=== PATIENT | female | born 1970 | race Caucasian/White ===

== ENCOUNTER 2019-01-21 12:35 | Emergency (ER) | payer BC, OTHER ==
--- NOTE | 2019-01-21 12:58 | EDPHY ---
H & P Stated Complaint: R ankle injury Time Seen by Provider: 01/21/19 12:48 HPI/ROS: HPI: This is a 48-year-old female who presents Chief Complaint: Right ankle, right big toe injury Location: Right ankle, right big toe Quality: Injury Duration: 1-2 hours prior to arrival Signs and Symptoms: No bleeding, no radiation, no numbness, no weakness, no tingling, no incontinence,+ decreased range of motion, + swelling, + pain, no fever, no skin color change Timing: Acute Severity: 04/14 Context: Patient reports that she was running late [place] meeting [place] when she tripped walking down the stairs. She reports that she twisted her right ankle and injured her right big toe. She reports that she felt immediate, constant, moderate, radiating pain from her ankle down into her big toe. Patient has increased pain with weight-bearing. Denies radiation, weakness, paresthesias. Patient reports that her right big toe movement is limited secondary to pain. Denies LOC/head injury/neck pain/dizziness/nausea/vomiting/ amnesia. Modifying Factors: No [id number] pain medications or ice applied Comment: ROS: A comprehensive 10 system review of systems is otherwise negative aside from elements mentioned in the history of present illness. MEDICAL/SURGICAL/SOCIAL HISTORY: Medical history: History of urinary tract infections, hypertension, GERD Surgical history: Hysterectomy, appendectomy, right wrist surgery by Dr. Lynch Social history: Former smoker. Employed. CONSTITUTIONAL: Polite, pleasant, middle-aged white female, awake and alert, no obvious distress HEENT: Atraumatic and normocephalic, PERRL, EOMI. Nares patent; no rhinorrhea; no nasal mucosal edema. Tympanic membranes clear. Oropharynx clear, no exudate and moist pink mucosa. Airway patent. No lymphadenopathy. No meningismus. Cardiovascular: Normal S1/S2, regular rate, regular rhythm, without murmur rub or gallop. PULMONARY/CHEST: Symmetrical and nontender. Clear to auscultation bilaterally. Good air movement. No accessory muscle usage. ABDOMEN: Soft, nondistended, nontender, no rebound, no guarding, no peritoneal signs, no masses or organomegaly. No CVAT. EXTREMITIES: 2/2 pulses, strength 5/5, right great toe shows mild swelling and tenderness to palpation at the DIP joint. Flexion is limited on the right great toe secondary to pain. All other toes have good flexion and extension at the DI P and MTP joints. Right Ankle: Mild lateral malleolus swelling, no ecchymosis, Plantar flexion to 50, dorsiflexion to 20. Foot inversion to 35 degree. Mild tenderness/swelling Anterior talofibular ligament. No tenderness/ swelling Calcaneofibular ligament, no tenderness/swelling posterior talofibular ligament, no tenderness/swelling posterior inferior tibiofibular ligament. Achilles tendon intact. no deformities, no clubbing, no cyanosis or edema. NEUROLOGICAL: no focal neuro deficits. GCS 15. SKIN: Warm and dry, no erythema. no rash. Good capillary refill. Source: Patient Exam Limitations: No limitations - Personal History Current Tetanus/Diphtheria Vaccine: Unsure Current Tetanus Diphtheria and Acellular Pertussis (TDAP): Unsure Tetanus Vaccine Date: 2009 - Medical/Surgical History Hx Asthma: No Hx Chronic Respiratory Disease: No Hx Diabetes: No Hx Cardiac Disease: No Hx Renal Disease: No Hx Cirrhosis: No Hx Alcoholism: No Hx HIV/AIDS: No Hx Splenectomy or Spleen Trauma: No Other PMH: utis. hyst, appy. r wrist surgery, HTN, GERD - Social History Smoking Status: Former smoker Constitutional: Initial Vital Signs Temperature (C) 36.9 C 01/21/19 12:41 Heart Rate 74 01/21/19 12:41 Respiratory Rate 16 01/21/19 12:41 Blood Pressure 132/93 H 01/21/19 12:41 O2 Sat (%) 94 01/21/19 12:41 O2 Delivery Mode Room Air Allergies/Adverse Reactions: Penicillins Allergy (Unknown, Verified 01/21/19 12:40) Hives Home Medications: Medication Instructions Recorded Synthroid 01/26/10 HCTZ (*) 01/21/19 Metoprolol Tartrate 01/21/19 Omeprazole 01/21/19 Paxil 01/21/19 Rosuvastatin Calcium 01/21/19 oxyCODONE/APAP 5/325 [Percocet 1 - 2 tab PO Q4H PRN #10 tab 01/21/19 5/325 (*)] Medical Decision Making - Diagnostics Imaging Results: Imaging Impressions Ankle X-Ray 01/21/19 12:44 Impression: Lateral ankle sprain. No acute fracture. Foot X-Ray 01/21/19 12:44 Impression: Acute nondisplaced incomplete fracture base of proximal phalanx great toe. Findings discussed with Emergency Department physician service assistant, Hillary Valverde, on 01/21/2019, 14:09. Procedures: Procedure: Splint placement. A right walking boot was applied. After application of the splint I returned and re-examined the patient. The splint was adequately immobilizing the joint and distal to the splint the patient's circulation and sensation was intact. ED Course/Re-evaluation: Vital signs reviewed and stable upon arrival. Right ankle x-ray, right foot x-ray ordered Given Percocet and Ibuprofen 600 mg Spoke with radiologist, Dr. Rincon, who reports the distal tibia chip fracture is old but new closed nondisplaced great toe fracture. Placed in walking boot, crutches, Dr. Lynch follow-up No signs of neurovascular compromise/tenting of skin/compartment syndrome/ extremities and joints examined above and below area of concern and are neurovascularly intact. This patient was seen under the supervision of my primary supervising physician. I evaluated care for this patient independently. Differential Diagnosis: Ankle injury differential diagnosis includes but is not limited to tibia fracture, fibula fracture, metatarsal fracture, LisFranc fracture, achilles tendon rupture, sprain. - Data Points Medications Given: Discontinued Medications Ibuprofen (Motrin) 600 mg PO EDNOW ONE Stop: 01/21/19 13:17 Last Admin: 01/21/19 13:19 Dose: 600 mg Oxycodone/Acetaminophen (Percocet 5/325) 1 tab PO EDNOW ONE Stop: 01/21/19 14:07 Last Admin: 01/21/19 14:13 Dose: 1 tab Departure - Departure Disposition: Home, Routine, Self-Care Clinical Impression: Moderate right ankle sprain Qualifiers: Encounter type: initial encounter Qualified Code(s): S93.401A - Sprain of unspecified ligament of right ankle, initial encounter Fracture of great toe, right, closed Qualifiers: Encounter type: initial encounter Phalanx: distal Fracture alignment: nondisplaced Qualified Code(s): S92.424A - Nondisplaced fracture of distal phalanx of right great toe, initial encounter for closed fracture Condition: Good Instructions: Ankle Sprain (ED), Crutch Instructions (ED), Toe Fracture (ED) Additional Instructions: Wear the walking boot while out of bed until seen by Orthopedics. Use crutches to aid ambulation. Start with toe-touch weight-bearing status. Take Tylenol 650 mg every 4 hours and/or Ibuprofen 600 mg every 8 hours with food as needed for pain. Use Percocet every 6 hours as needed for severe/break through pain. Do not use Tylenol and Percocet concomitantly. Apply ice for 30 minutes at a time; 2-3 times per day for the next 1-2 days. Follow up with Orthopedics in 7-10 days at which time they will evaluate and recommend with you if conservative management versus further imaging is indicated. Referrals: Cassandra Sanches PA [Primary Care Provider] - As per Instructions Haydee Lynch MD [Medical Doctor] - As per Instructions Prescriptions: oxyCODONE/APAP 5/325 [Percocet 5/325 (*)] 1 - 2 tab PO Q4H PRN #10 tab PRN Reason: Pain, Severe
[2019-01-21] MEDS ORDERED: IBUPROFEN 600 MG TAB PO ONE (13:16)
[2019-01-21] MEDS ORDERED: OXYCODONE/APAP 5/325 TAB PO ONE (14:06)
[2019-01-21 14:27] VITALS: BP 118/76
== END 2019-01-21 14:38 | disposition home or self-care (01) ==
DX: S92.424A Nondisplaced fracture of distal phalanx of right great toe, initial encounter for closed fracture (principal); S93.401A Sprain of unspecified ligament of right ankle, initial encounter; W10.8XXA Fall (on) (from) other stairs and steps, initial encounter; Y93.01 Activity, walking, marching and hiking
CPT/HCPCS: L4386